=== PATIENT | female | born 1965 | race Caucasian/White ===

== ENCOUNTER → 2019-10-16 15:30 | Outpatient (CLI) | payer SELFPAY ==
--- NOTE | 2019-10-16 15:35 | CT_ITS ---
STUDY: CT BRAIN WITH AND WITHOUT CONTRAST REASON FOR EXAM: Female, 54 years old. Dizziness RADIATION DOSAGE (If Supplied By Facility): CTDIvol = ( 44.99 ) mGy, DLP = ( 734.24 ) mGycm TECHNIQUE: Transaxial CT imaging of the brain was performed pre and post contrast administration. The examination was performed with intravenous administration of 50 ML ISOVUE 370. Individualized dose optimization techniques were used for this CT. COMPARISON: None. FINDINGS: Normal soft tissue structures. Normal calvarium. Normal size ventricles and extra-axial spaces for the patient''s age. There is mild bilateral periventricular and subcortical white matter hypoattenuation which is symmetric in distribution. Normal basal ganglia and thalami. Normal brainstem. There is a 4.7 x 3.2 cm intraparenchymal fluid collection in the right cerebellar hemisphere . There is an approximate 12 mm leftward shift of midline cerebellar structures. There is no intracranial hemorrhage. There are no findings of an acute ischemic infarction. There is mild mucoperiosteal thickening of the paranasal sinuses. CT/Brain/Head W/WO Contrast IMPRESSION: 1. 4.7 x 3.2 cm intraparenchymal fluid collection in the right cerebellar hemisphere with associated 12 mm leftward shift of midline cerebellar structures. Dedicated MR imaging is recommended for more definitive characterization. 2. Mild bilateral periventricular white matter chronic small vessel disease 3. Mild chronic paranasal sinus disease Electronically Signed: Serge Herrera MD at 4:06 EST Tel , Service support ,
== END ==
PROVIDERS: Family Provider Nurse Practitioner Family; PCP Nurse Practitioner Family; Referring Provider Otolaryngology Otolaryngology/Facial Plastic Surgery; Visit Provider Otolaryngology Otolaryngology/Facial Plastic Surgery
DX: R42 Dizziness and giddiness (principal)
CPT/HCPCS: 70470; Q9967